=== PATIENT | male | born 1935 | race Caucasian/White ===

== ENCOUNTER 2016-10-06 16:41 | Emergency (ER) | payer MEDICARE, BC ==
[~2016-10-06 16:41] MED LIST: Nitroglycerin 0.4 MG TAB 1 EACH ONE; Sodium Chloride 0.9% 1,000 ML BAG ONE
[2016-10-06] MEDS ORDERED: Aspirin 325 MG TAB ONE (17:05)
[2016-10-06 17:11] LABS: INR-International Normal Ratio 1.1; Prothrombin Time 13.8 SEC (12.0-14.7)
[2016-10-06 17:12] LABS: PTT 25.2 SEC (22.9-36.1)
[2016-10-06 17:17] LABS: #Basophils 0.1 thou/uL (0.0-0.2); #Lymphocytes 0.9 thou/uL (1.20-3.40); #Monocytes 0.6 thou/uL (0.11-0.59); #Neutrophils 8.9 thou/uL (1.40-6.50); %Basophils 0.7 % (0.0-1.0); %Eosinophils 0.2 % (0.0-10.0); %Lymphocytes 8.8 % (21.0-51.0); %Monocytes 5.8 % (0.0-10.0); %Neutrophils 84.5 % (42.0-75.0); Hemoglobin 12.8 g/dL (14.0-18.0); Mean Corpuscular HGB CONC 35.9 g/dL (32.0-36.0); Mean Corpuscular Hemoglobin 34.8 pg (27.0-31.0); Mean Platelet Volume 7.7 fL (7.4-10.4); Platelet Count 213 thou/uL (130-400); RBC Distribution Width 10.7 % (11.5-14.5); Red Blood Cell (RBC) Count 3.69 mill/uL (4.70-6.10); White Blood Cell (WBC) Count 10.5 thou/uL (4.8-10.8)
[2016-10-06 17:20] LABS: Manual Diff?? NO
[2016-10-06 17:21] LABS: ALT (SGPT) 37 U/L (8-55); AST (SGOT) 34 U/L (5-34); Albumin 3.9 g/dL (3.4-4.8); Alkaline Phosphatase 65 U/L (40-150); Anion Gap 15 mmol/L (10-20); BUN (Urea Nitrogen) 9 mg/dL (8.4-25.7); Bilirubin, Total 1.8 mg/dL (0.2-1.2); CK (CPK) 218 U/L (30-200); Calc. Creatinine Clearance 0 mL/min (70-130); Calcium 8.2 mg/dL (7.8-10.44); Carbon Dioxide 20 mmol/L (23-31); Chloride 95 mmol/L (98-107); Estimated GFR-MDRD Greater than 90; Globulin 2.2 g/dL (2.4-3.5); Glucose 96 mg/dL (83-110); Magnesium 1.9 mg/dL (1.6-2.6); Protein, Total 6.1 g/dL (5.8-8.1); Sodium 126 mmol/L (136-145)
--- NOTE | 2016-10-06 17:22 | RAD ---
CHEST ONE VIEW 10/06/16 HISTORY: Chest pain. COMPARISON: None. FINDINGS: There is an 8 mm nodule of the right lung base. There is a 2.1 cm nodule projecting over the left moses ng apex. Heart size is upper limits of normal. Mild pulmonary venous congestion. IMPRESSION: 1. Mild pulmonary venous congestion. 2. 2.1 cm irregular nodule projecting over the left lung apex and an 8 mm nodule of the right l sarah beth base. These are of uncertain significance, although malignancy is of concern. Nonemergent CT of the chest is recommended. POS: DUSTIN
[2016-10-06 17:32] LABS: CKMB 3.6 ng/mL (0-6.6); Troponin I Less than 0.010 ng/mL (< 0.028)
[2016-10-06] MEDS ORDERED: Nitroglycerin 0.4 MG TAB 1 EACH ONE ×2 (17:44→18:25)
[2016-10-06] MEDS ORDERED: Ondansetron HCl/PF 4 MG/2 ML Vial ONE (18:40)
== END 2016-10-06 19:14 | disposition short-term general hospital (02) ==
LOC: MADERS 16:41
DX: I20.0 Unstable angina (principal); R91.1 Solitary pulmonary nodule; F41.9 Anxiety disorder, unspecified; E78.5 Hyperlipidemia, unspecified; I10 Essential (primary) hypertension; I25.2 Old myocardial infarction; Z79.82 Long term (current) use of aspirin; Z79.891 Long term (current) use of opiate analgesic; Z79.899 Other long term (current) drug therapy
CPT/HCPCS: 71010; 80053; 82553; 83735; 83880; 84484; 85025; 85610; 85730; 93005; 94760; 96361; 96374; 96375; J2270; J2405; J7050